=== PATIENT | male | born 2000 | race Caucasian/White ===

== ENCOUNTER 2019-07-01 09:01 | Outpatient (CLI) | payer OTHER ==
[~2019-07-01 09:01] MED LIST: Gadobenate Dimeglumine 529 MG/1 ML (20ML VIAL) ONE
--- NOTE | 2019-07-01 10:32 | MRI ---
Exam: Brain MRI with and without contrast HISTORY: Convulsions, patient injured head 4-5 weeks ago. Seizure. COMPARISON: None FINDINGS: Gradient echo sequence: No hemorrhage Calvarium: Appropriate T1 marrow signal intensity Midline brain parenchyma: Unremarkable Cerebrum:No parenchymal mass, mass effect or midline shift. Brain volume is age-appropriate. Cortical kumar-white matter differentiation is preserved. No significant T2 or FLAIR white matter hyperintensities. Symmetric signal intensity of the hippocampi. No evidence of mesial temporal sclero sis. Ventricles: No evidence of hydrocephalus. Sinuses and mastoid air cells: Adequate aeration Diffusion: Central arterial flow is maintained. Absent restricted diffusion. Postcontrast images: No pathologic enhancement of the brain parenchyma. IMPRESSION: 1. Unremarkable pre and postcontrast brain MRI. 2. No evidence of hemorrhage on the axial gradient echo sequence. 3. No MR evidence of mesial temporal sclerosis. 4. No abnormal white matter hyperintensities on the axial T2 or FLAIR sequences
== END 2019-07-01 09:02 | disposition home or self-care (01) ==
LOC: SCSMRI 09:01
PROVIDERS: ATTEND Psychiatry & Neurology Neurology
DX: R56.9 Unspecified convulsions (principal)
CPT/HCPCS: 70553; A9577